=== PATIENT | female | born 1985 | race African-American/Black ===

== ENCOUNTER 2018-08-24 11:35 | Emergency (ER) | payer SELFPAY | END 2018-08-24 13:16 | disposition home or self-care (01) | LOC: EDH 11:35 | DX: S46.911A Strain of unspecified muscle, fascia and tendon at shoulder and upper arm level, right arm, initial encounter (principal); Z98.890 Other specified postprocedural states; V89.2XXA Person injured in unspecified motor-vehicle accident, traffic, initial encounter; Y93.89 Activity, other specified; Y92.89 Other specified places as the place of occurrence of the external cause; Y99.8 Other external cause status | CPT/HCPCS: 99282 ==

== ENCOUNTER → 2021-12-25 | Outpatient (CLI) | payer BC | END | disposition home or self-care (01) | LOC: RAH 14:02 | PROVIDERS: ATTEND Internal Medicine | DX: N64.4 Mastodynia (principal); N64.3 Galactorrhea not associated with childbirth; N92.0 Excessive and frequent menstruation with regular cycle; N60.01 Solitary cyst of right breast; N60.02 Solitary cyst of left breast; N63.21 Unspecified lump in the left breast, upper outer quadrant; N92.6 Irregular menstruation, unspecified; N63.42 Unspecified lump in left breast, subareolar; N63.25 Unspecified lump in the left breast, overlapping quadrants | CPT/HCPCS: 76856 ==

== ENCOUNTER 2025-05-04 16:36 | Emergency (ER) | payer BC ==
[~2025-05-04] VITALS: Ht 167.6 cm; Wt 109.8 kg
[2025-05-04 16:37] VITALS: BP 139/74; PULSE 117; RESP 20; TEMP 100
[2025-05-04 18:08] LABS: RAPID GROUP A STREP negative (NEGATIVE)
[2025-05-04 18:10] LABS: COVID19 (SARS ANTIGEN RAPID) PRESUMPTIVE NEGATIVE (NEGATIVE)
[2025-05-04 18:19] LABS: INFLUENZA TYPE B Negative For Type B (NEGATIVE)
[2025-05-04 18:30] LABS: INFLUENZA TYPE A Positive For Type A (NEGATIVE)
--- NOTE | 2025-05-04 19:15 | ERN ---
ED Note History of Present Illness Stated Complaint: FLULIKE SYMPTOMS Chief Complaint: Flu Symptoms Time Seen by MD: 16:40 Time Seen by Midlevel: 16:40 Dictation: The patient is a 40-year-old female with a past medical history who presents to the emergency department with complaints of chills, fever, body aches, runny nose, cough onset yesterday. Patient reports that people at work have tested positive for influenza A. Allergies: Coded Allergies: No Known Allergies (Unverified Allergy, Unknown, 05/04/25) Past Medical History Past Medical History: No Pertinent History Surgical History: None LMP: Mar 20, 2025 RN Note Reviewed/Agreed w/PFSH: Yes Review of System Dictation Constitutional: Negative for chills, and weight loss positive for fever Eyes: Negative for injury, pain,redness, and discharge ENT: Negative for injury,pain or swelling Cardiovascular: Negative for chest pain, palpitations, and edema Respiratory: Negative for shortness of breath, cough, and wheezing, Abdomen/GI: Negative for abdominal pain, nausea, vomiting, diarrhea, and constipation Back: Negative for injury and pain : Negative for injury, bleeding and discharge MS/Extremity: Negative for injury and deformity Skin: Negative for rash, and discoloration Neuro: Negative for headache, weakness, numbness, tingling, and seizure Psych: Negative for suicide ideation, homicidal ideation, and hallucinations Initial Vital Sign VS Vital Signs Date Time Temp Pulse Resp B/P (MAP) Pulse Ox O2 Delivery O2 Flow Rate FiO2 05/04/25 16:37 100.0 117 20 139/74 99 Room Air Physical Exam Dictation Vital Signs reviewed General Appearance: Alert, oriented x 3, no acute distress, well developed, nour ished. Head and Face: non-traumatic. Eyes: PERRL, pink conjunctivas, eyelid no trauma, anterior chamber with arcus senilis. Ears: Pinnas intact and no signs of trauma or erythema ear canals clear and no discharge TM no erythema Nose: No discharge, no bleeding. Oropharynx: Mouth normal, tongue pink. pharynx clear,no erythema, tonsils no exudates, no abscesses noted, mucous memb mary moist Neck: Supple, non-tender, no thyromegaly, no masses, no JVD, no bruits Breast:Deferred Chest:No tenderness, no crepitus, no paradoxical movement, no retractions Lungs:Clear, well-ventilated, symmetric, no rales, no wheezing, no rhonchi, no s tridor, good breath sounds bilaterally Heart: Regular rate, regular rhythm, no murmur, no gallops Vascular: no peripheral edema, Abdomen: Soft, positive bowel sounds, nondistended, no guarding, nontender, no rebound, no masses no hepatomegaly, no splenomegaly, no Rader's sign, no hernias. Rectal: Deferred Genital: Deferred Neurological: Normal speech, motor function intact, sensory function intact Musculoskeletal: Neck nontender, full range of motion, back nontender, full range of motion, Extremities: nontender, full range of motion Skin: Color pink, dry, no turgor, no rash, no lacerations, no abrasions, no contusions. Lymphatic: Deferred Results (Laboratory/Radiology) Laboratory/Radiology Laboratory Tests Test 05/04/25 17:15 Influenza Type A Antigen Positive For Type A Influenza Type B Antigen Negative For Type B SARS-CoV-2 Antigen (Rapid) PRESUMPTIVE NEGATIVE Group A Streptococcus Rapid negative (NEGATIVE) Labs Reviewed?: Yes ED Course ED Course Orders Procedure Category Date Status Time Influenza Type A & B, LAB 05/04/25 Complete Rapid 17:04 Covid19 (Sars Antigen LAB 05/04/25 Complete Rapid) 17:04 Rapid (Group A Strep) LAB 05/04/25 Complete 17:04 Acetaminophen 500mg PHA 05/04/25 Complete Tab (Tylenol 500mg T 17:30 Guaifenesin-Codeine PHA 05/04/25 Complete Syrup 5ml (Robitussi 17:30 Oseltamivir Phosphate PHA 05/04/25 In Process (Tamiflu) 19:30 Current Medications Medications (Trade) Dose Ordered Sig/Lilly Route PRN Reason Start Time Stop Time Status Last Admin Dose Admin Acetaminophen (TYLenol 500MG TAB) 1,000 mg ONCE ONCE PO 05/04/25 17:30 05/04/25 17:31 DC Guaifenesin/ Codeine Phosphate (RobiTUSSin AC 5 ML SYRUP) 10 ml ONCE ONCE PO 05/04/25 17:30 05/04/25 17:31 DC 05/04/25 17:19 Oseltamivir Phosphate (Tamiflu) 75 mg ONCE ONCE PO 05/04/25 19:30 05/04/25 19:31 Vital Signs Date Time Temp Pulse Resp B/P (MAP) Pulse Ox O2 Delivery O2 Flow Rate FiO2 05/04/25 16:37 100.0 117 20 139/74 99 Room Air Medical Decision Making MDM The patient is a 40-year-old female with a past medical history who presents to the emergency department with complaints of chills, fever, body aches, runny nose, cough onset yesterday. Patient reports that people at work have tested positive for influenza. Serology was positive for influenza A. Patient refused a chest x-ray but patient has clear lung sounds. No respiratory distress. Patient otherwise in no acute distress. We will treat with Tamiflu and instructed to follow up with PCP. Differential diagnosis: Upper respiratory infection, strep throat, COVID-19 infection Need for hospitalization: Patient does not meet criteria for hospitalization. There are no social concerns with this patient. DX & DISP Disposition: Discharge Departure Impression: Primary Impression: Influenza A Condition: Stable Scripts Oseltamivir Phosphate (Tamiflu) 75 Mg Cap 75 MG PO BID for 5 Days, #10 CAP Prov: MARY ALBERT 05/04/25 Additional Instructions: Your labs showed you tested positive for influenza A. Please follow up with your primary doctor in 1-2 days. Take your medications as prescribed. You can take Tylenol as needed for fevers. If anything worsens please return to ER. FOLLOW-UP WITH PRIMARY CARE PROVIDER IN 1 TO 2 DAYS. TAKE MEDICATIONS DIRECTED HERE IN THE EMERGENCY ROOM. OKAY TO CONTINUE HOME MEDICATIONS UNLESS OTHERWISE DISCUSSED DURING YOUR VISIT IN THE EMERGENCY ROOM TODAY. RETURN TO YOUR NEAREST EMERGENCY ROOM IF SYMPTOMS WORSEN OR IF THERE IS NO IMPROVEMENT. CALL 911 IF YOU NEED IMMEDIATE ASSISTANCE. TAKE TYLENOL [id number] NEEDED AND IF NO CONTRAINDICATIONS ARE PRESENT. INCREASE ORAL HYDRATION. A WOUND CULTURE OR URINE CULTURE WAS ORDERED HERE IN THE EMERGENCY ROOM DEPARTMENT PLEASE FOLLOW-UP WITH PRIMARY CARE PROVIDER AND ADVISE THEM TO GET REPEAT PORTS FROM OUR FACILITY. IF YOU HAD ANY DIVINA WRAP/SPLINTS THAT WERE APPLIED HERE, PLEASE DO NOT REMOVE THEM UNTIL YOU SEE YOUR PRIMARY CARE OR SPECIALTY. Time of Disposition: 19:23 I have reviewed the case, and I agree with, Diagnosis and Plan MARY ALBERT May 04, 2025 19:15
[2025-05-04] MEDS ORDERED: OSEL75 PO (19:24)
[2025-05-04] MEDS: OSELTAMIVIR PHOSPHATE 75 MG CAP PO ONE (19:30)
== END 2025-05-04 19:33 | disposition home or self-care (01) ==
LOC: EDH 16:36
DX: J10.1 Influenza due to other identified influenza virus with other respiratory manifestations (principal); Z20.822 Contact with and (suspected) exposure to COVID-19
CPT/HCPCS: 87426; 87804; 87880; 99283